=== PATIENT | male | born 1950 | race African-American/Black ===

== ENCOUNTER 2020-02-12 16:19 | Emergency (ER) | payer MEDICARE, MEDICAID, OTHER ==
[~2020-02-12] VITALS: Ht 177.8 cm; Wt 122.5 kg
[2020-02-12 16:14] VITALS: BP 16/87
--- NOTE | 2020-02-12 16:25 | NUR ---
ED Nurse Note: pt arrives stating he was on [place] today and had one episode of diarrhea so called [facility] to bring to hospital. denies fever or cough. no dyspnea. pt A/Ox4.
[2020-02-12] MEDS ORDERED: DICYCLOMINE HCL10 MG ORAL (16:43)
[2020-02-12] MEDS ORDERED: FAMOTIDINE20 MG ORAL (16:43)
[2020-02-12] MEDS ORDERED: Dicyclomine HCl 10mg/5ml oral soln ORAL ONE (16:45)
--- NOTE | 2020-02-12 16:55 | Emergency Room Report ---
History of Present Illness General Chief Complaint: Diarrhea Source: Patient, EMS Present Illness HPI Patient is a 69-year-old male brought in by EMS after increased diarrhea. Patient had been [place] [employer]. He stated that he had single episode of diarrheal stool. Denies any recent rectal bleeding. Denies any prior history of ulcers. Denies any shortness of breath. Had no previous history of similar symptoms. He states he had run out of some blood pressure medications and was attempting to see the doctors at the [facility]. Allergies: Coded Allergies: PENICILLINS (Verified Allergy, Unknown, 02/12/20) COVID-19 Screening Contact w/high risk pt: No Recent Travel to affected area: No Experienced COVID-19 symptoms?: Yes COVID-19 symptoms experienced: Runny Nose Patient History Past Medical History: see triage record Reviewed Nursing Documentation: PMH: Agreed; PSxH: Agreed Nursing Documentation-PMH Past Medical History: No History, Except For Hx Hypertension: Yes Review of Systems All Other Systems: negative except mentioned in HPI Physical Exam Vital Signs Date Time Temp Pulse Resp B/P (MAP) Pulse Ox O2 Delivery O2 Flow Rate FiO2 02/12/20 16:14 98.2 105 18 16/87 (64) 98 Room Air Sp02 EP Interpretation: reviewed, normal General Appearance: normal inspection, well appearing, no apparent distress, alert, non-toxic, obese Head: atraumatic ENT: normal ENT inspection, hearing grossly normal, normal voice Neck: normal inspection, full range of motion, supple, no bony tend Respiratory: normal inspection, lungs clear, normal breath sounds, no respiratory distress, no retraction, no wheezing Cardiovascular #1: regular rate, rhythm, no edema Gastrointestinal: normal inspection, normal bowel sounds, non tender, soft, no guarding, no hernia Genitourinary: no CVA tenderness Musculoskeletal: normal inspection, back normal, normal range of motion Neurologic: alert, motor strength/tone normal, orchard hand III-XII nml as tested, oriented x3, responsive, speech normal, normal inspection Psychiatric: normal inspection, judgement/insight normal, mood/affect normal Skin: no rash Medical Decision Making Diagnostic Impression: Primary Impression: Gastroenteritis ER Course Patient presented for abdominal pain. Differential diagnoses included gastroenteritis, colitis, coronavirus infection among others. Laboratory testing showed . Patient has a benign exam and does not appear to require any imaging or laboratory testing at this time. Patient was given medications for symptomatic treatment. Patient appears to be stable for close outpatient follow up. Patient was advised to return if he began having fever increased dizziness or any other concerns. He is advised to follow-up with his doctor at the [facility] for blood pressure medication refill as he does not know his medications. The patient is advised to follow up with primary care doctor in 1-2 days. Patient is advised to return if any worsening condition or if any changes in status that are concerning. This report is dictated with [employer] software which may occasionally lead to discrepancies related to use of this software. Last Vital Signs Date Time Temp Pulse Resp B/P (MAP) Pulse Ox O2 Delivery O2 Flow Rate FiO2 02/12/20 16:14 98.2 105 18 16/87 (64) 98 Room Air Status: improved Disposition: HOME, SELF-CARE Condition: Stable Scripts Famotidine* (Pepcid 20mg tablet*) 20 Mg Tablet 20 MG ORAL DAILY, #30 TAB 0 Refills Prov: Ty Garcia MD 02/12/20 Dicyclomine Hcl* (DICYCLOMINE HCL*) 10 Mg Capsule 10 MG ORAL QID, #20 CAP Prov: Ty Garcia MD 02/12/20 Patient Instructions: Viral Gastroenteritis, Adult Additional Instructions: Follow up with your doctor at the [facility] for medication refill. Return if worse. Ty Garcia MD Feb 12, 2020 16:55
--- NOTE | 2020-02-12 18:02 | NUR ---
ED Nurse Note: pt amb steady gait to brp to clean himself up. no further episodes of diarrhea. denies discomfort.
[2020-02-12 18:25] VITALS: BP 166/102
--- NOTE | 2020-02-12 18:25 | NUR ---
ED Nurse Note: Pt cleared by health care Provider for discharge. DC instructions/prescription was given and explained to pt and verbalized understanding of teachings. All medical devices such as ID band removed. Pt is AAO x4, ambulatory and left with all personal belongings.son driving pt home. pants given to pt to wear home
== END 2020-02-12 18:25 | disposition home or self-care (01) ==
LOC: EDBD 16:19 → EMR 16:40
DX: K52.9 Noninfective gastroenteritis and colitis, unspecified (principal); Z88.0 Allergy status to penicillin; I10 Essential (primary) hypertension
CPT/HCPCS: 99282